=== PATIENT | male | born 1935 | race Caucasian/White ===

== ENCOUNTER 2016-08-23 05:41 | Inpatient (IN) | payer OTHER, MEDICARE ==
[~2016-08-23] VITALS: Ht 177.8 cm; Wt 92.5 kg
--- NOTE | ~2016-08-23 | H ---
[facility] [address] [place] [address] HISTORY AND PHYSICAL Name: JARRETT EASLEY V Room #: 150-8 DIS IN M.R.#: [id number] Admission: 08/23/16 Attend Phys: Luis Chand MD Discharge: 08/23/16 Date of : 31 Report #: [id number] THIS REPORT FOR: //name// For History and Physical, please see office documentation/handwritten note in the patient's medical record. By: 1525 Luis Chadn MD /jr
--- NOTE | ~2016-08-23 | O ---
[facility] [place] [address] OPERATIVE REPORT Name: JARRETT EASLEY V Room #: 150-8 [facility] IN M.R.#: [id number] Admission: 08/23/16 Attend Phys: Luis Chand MD Discharge: 08/23/16 Date of : 33 Report #: [id number] THIS REPORT FOR: //name// CC: Oren Chand DATE OF SERVICE: 08/23/2016 PREOPERATIVE DIAGNOSIS: Right tibia retained hardware. POSTOPERATIVE DIAGNOSIS: Right tibia retained hardware. PROCEDURE: Right tibial nail removal. SURGEON: Luis Chand MD SMALL ENGINE TECHNICIAN: Manuel Green, nurse practitioner. INDICATIONS FOR SMALL ENGINE TECHNICIAN: During the course of operation, extensive manipulation, retraction and limb positioning was required. This was afforded to me by my laboratory assistant. ANESTHETIC: General. INDICATIONS: See hospital history and physical. DESCRIPTION OF PROCEDURE: After adequate general anesthesia had been obtained, the patient's right lower extremity was prepped and draped in the usual meticulous sterile fashion. Incision was made overlying to the previously made incision proximally. SubQ divided sharply. The interlocking screw was identified and removed without difficulty. We then located the top of the nail. The removal device was screwed into the top of the nail and then the nail was backed down in retrograde fashion. It did require moderate amount of force to achieve this. We then took a C-arm to determine that we had not created an intraoperative fracture. The wound was irrigated copiously, meticulous hemostasis obtained. The retinaculum closed with #1 Vicryl, subQ closed with 2-0 Monocryl, skin closed with gertrudis. Sterile compressive dressing was applied. By: 1508 1657 Luis Chand MD /nt
[~2016-08-23 05:41] MED LIST: BENICAR HCT 401 EACH OR; BENICAR HCT 401 EACH PO; BYSTOLIC 5 MG5 M1 PO; COUMADIN 2.5MG2.5 M1 OR; COUMADIN 2.5MG2.5 M1 PO; COUMADIN 5 MG TA5 M1 OR; COUMADIN 5 MG TA5 M1 PO; FISH OIL 1,2001 EAC5 PO; FISHOIL; FLOMAX OR; FLOMAX PO; GLIPIZIDE ER10 MG PO; GLUCOPHAGE XR500 MG PO; HYDROCODON-ACE1 EAC5 PO; HYDROCODON-ACE1 EACH PO; HYTRIN 5 M5 MG/1 CAP PO; INDERAL40 MG PO; IRON18 M1 PO; LIPITOR20 MG PO; LIVALO2 MG PO; NEURONTIN 300300 M1 PO; NEURONTIN 300M300 M2 PO; NEURONTIN 400400 M1 PO; OMEGA-31000 MG PO; OMEPRAZOLE 20 M20 M1 PO; PRILOSEC 20 MG20 MG PO; PROSCAR 5MG TABL5 MG PO; TRAMADOL 50 MG50 MG PO; TRILIPIX135 MG PO; ULTRAM 50MG TAB50 MG OR
[2016-08-23 07:43] LABS: HEMATOCRIT 30.6 % (42.0-52.0); HEMOGLOBIN 10.6 gm/dL (14.0-18.0); MCH 31.4 pg (26.0-34.0); MCHC 34.7 g/dL (28.0-37.0); MCV 90.5 fL (80.0-100.0); RBC 3.38 mil/uL (4.50-6.00); RDW 14.3 % (10.5-14.5); WBC 4.1 thou/uL (4.0-11.0)
[2016-08-23 07:52] LABS: CALCIUM 8.8 mg/dL (8.5-10.1); CREATININE 1.5 mg/dL (0.7-1.3); POTASSIUM 3.9 mmol/L (3.5-5.1)
[2016-08-23 08:15] VITALS: BP 125/53
[2016-08-23 11:56] VITALS: BP 125/53
[2016-08-23] MEDS ORDERED: XARELTO15 MG PO (13:25)
== END 2016-08-23 13:15 | disposition home or self-care (01) | DRG 465 ==
LOC: TBA 05:41 → PRE 12:49 → TBA 13:15 → PRE 13:28
PROVIDERS: Orthopaedic Surgery
PROC: 0SPC0JZ Removal of Synthetic Substitute from Right Knee Joint, Open Approach (ICD-10-PCS; principal; 2016-08-23)
DX: T84.84XA Pain due to internal orthopedic prosthetic devices, implants and grafts, initial encounter (principal); M19.90 Unspecified osteoarthritis, unspecified site; Y69 Unspecified misadventure during surgical and medical care; E11.9 Type 2 diabetes mellitus without complications; Z98.42 Cataract extraction status, left eye; Z98.41 Cataract extraction status, right eye; Z80.3 Family history of malignant neoplasm of breast
CPT/HCPCS: 50010; 50101; 50386; 50417; 51320; 51412; 52001; 52282; 56525; 62110; 62900; 70005

== ENCOUNTER 2016-10-09 05:22 | Inpatient (IN) | payer OTHER, MEDICARE ==
[2016-09-26 11:08] LABS: HEMATOCRIT 26.7 % (42.0-52.0); HEMOGLOBIN 9.2 gm/dL (14.0-18.0); MCH 31.8 pg (26.0-34.0); MCHC 34.3 g/dL (28.0-37.0); MCV 92.8 fL (80.0-100.0); RBC 2.88 mil/uL (4.50-6.00); RDW 15.6 % (10.5-14.5); WBC 4.1 thou/uL (4.0-11.0)
[2016-09-26 11:13] LABS: URINE BILIRUBIN NEGATIVE (Negative); URINE BLOOD NEGATIVE (Negative); URINE COLOR YELLOW; URINE GLUCOSE-RANDOM* NEGATIVE (Negative); URINE KETONES NEGATIVE (Negative); URINE LEUKOCYTES-REFLEX NEGATIVE (Negative); URINE PROTEIN (DIPSTICK) NEGATIVE (Negative); URINE SPECIFIC GRAVITY 1.015 (1.003-1.035); URINE UROBILINOGEN 0.2 E.U./dl (0.2-1.0)
[2016-09-26 11:20] LABS: INR 1.8; PROTIME 18.2 Seconds (9.3-11.4)
[2016-09-26 11:22] LABS: ALBUMIN 3.4 g/dL (3.4-5.0); CALCIUM 8.4 mg/dL (8.5-10.1); CREATININE 1.4 mg/dL (0.7-1.3); POTASSIUM 4.1 mmol/L (3.5-5.1)
[2016-09-27 04:08] LABS: GLYCOHEMOGLOBIN (HGB A1C) 5.5 % (4.8-5.6)
[2016-10-09] VITALS (9 sets, daily range): BP systolic 89–120; BP diastolic 33–94
[~2016-10-09] VITALS: Ht 180.3 cm; Wt 93.9 kg
--- NOTE | ~2016-10-09 | EKG ---
[address] [address] ELECTROCARDIOGRAM REPORT Name: RONNADUARTEEktaJARRETT Sheila Room #: 535-P ADM IN M.R.#: [id number] Admission: 10/09/16 Attend Phys: Luis Chand MD Discharge: Date of : 33 Report #: [id number] THIS REPORT FOR: //name// [facility] Test Date: 2016-10-10 Test Time: 06:44:15 Pat Name: JARRETT EASLEY Department: Room: 535 P Gender: M Urinalysis Technician: devyn : 1935 Requested By: Oren Tenorio Order Number: [id number] MD: Rayray Ibarra Measurements Intervals [place] Rate: 69 P: [place]: QRS: -1 QRSD: 96 T: 39 QT: 422 QTc: 452 Interpretive Statements Atrial fibrillation Low voltage, extremity leads Baseline wander in lead(s) V2 Compared to ECG 09/26/2016 11:06:46 Ventricular premature complex(es) no longer present Electronically Signed On 10-10-2016 7:45:02 CDT by Rayray Ibarra [email or web address] <ELECTRONICALLY SIGNED> By: Rayray Ibarra MD, [facility] 10/10/16 0745 0644 0644 Rayray Ibarra MD, [facility] /EPI
--- NOTE | ~2016-10-09 | O ---
[facility] [place] [address] OPERATIVE REPORT Name: RONNAJARRETT FRANK Sheila Room #: 535-P ADM IN M.R.#: [id number] Admission: 10/09/16 Attend Phys: Luis Chand MD Discharge: Date of : 33 Report #: [id number] THIS REPORT FOR: //name// CC: Oren Tenorio MD [facility] Bradly Chand DATE OF SERVICE: 10/09/2016 PREOPERATIVE DIAGNOSES: Left knee degenerative joint disease, severe. POSTOPERATIVE DIAGNOSES: Left knee degenerative joint disease, severe. PROCEDURE: Left total knee arthroplasty. SURGEON: Luis Chand MD. GL ACCOUNTANT: BERNIE Gannon. INDICATIONS FOR GL ACCOUNTANT: During the course of operation, extensive manipulation, retraction and limb positioning was required. This was afforded to me by my mail handler assistant. ANESTHESIA: General. INDICATIONS: See hospital H and P. IMPLANTS UTILIZED: Used a DePuy PFC knee system. We used a cruciate retaining femoral component press fit size 5, size 5 tibial tray with 10 mm polyethylene insert and a 41 mm oval dome patella. DESCRIPTION OF PROCEDURE: After adequate general anesthesia had been obtained, the patient's left lower extremity was prepped and draped in the usual meticulous sterile fashion. Limb was exsanguinated with gravity, tourniquet inflated to 350 torr. Anterior midline incision was made, subQ divided sharply. Hemostasis obtained with electrocautery. Medial parapatellar incision was made. Infrapatellar fat pad excised. Medial release performed. Drill was used to drill the distal femur. This was enlarged, irrigated, suctioned, and the intramedullary guide placed the full length of the femur. Distal femoral cutting guide pinned the appropriate height, distal femoral cut was made. We used a measurement device, determined the size 5 as appropriate size for this patient. We marked the distal femur, impacted the cutting guide into place and the anterior, posterior and chamfer cuts were made. Rongeur was used to remove additional osteophytes. [address] [address] OPERATIVE REPORT Name: JARRETT EASLEY V Room #: 535-P [facility] IN M.R.#: [id number] Admission: 10/09/16 Attend Phys: Luis Chand MD Discharge: Date of : 33 Report #: [id number] At this time, ACL was transected, tibia translated anteriorly, menisci excised. Drill was used to drill central portion of the tibia. This hole was enlarged, irrigated, suctioned, and the intramedullary guide placed the full length of tibia. Proximal tibial cutting guide was placed at appropriate height. Proximal tibia cut was made and 5 tray gave us the best coverage on the tibia. Trial components in position, the patient had the best flexion and extension gap with a 10 spacer. We then measured the patella and a cutting guide was clamped into place, patellar cut was made. A 41 template gave us the best coverage. Pedicles were drilled, trial component put into position. The knee was then taken through several cycles of flexion, extension to achieve the optimal tibial tray rotation. Patella tracked normally. At this time, tibial tray rotation marked, distal femur drilled. Trial components were removed. Tibial keel cuts were made. The knee was irrigated with both pulse lavage and antibiotic irrigation. Cement was vacuum mixed and bone plugs were placed to proximal tibia and distal femur. When the cement reached the appropriate consistency, the knee was thoroughly dried, tibial tray was cemented in place, excess cement was removed, polyethylene was impacted in place. The femur was impacted in place and the knee was taken out to 30 degrees of flexion with uniform compression placed across components. Patellar button was then cemented into place and again, excess cement was removed. At this time, irrigation was placed in the wound and allowed to rest in the wound until the cement fully cured. When it had done so, the knee was irrigated, dried thoroughly. Drains were placed superolaterally deep and superficial. Retinacular layer was closed with combination of interrupted [id number]-sb-[id number] #1 Vicryl as well as running #1 Tevdek. SubQ was closed with 2-0 Monocryl, skin closed with gertrudis. Sterile compressive dressing was complied. Tourniquet was then deflated. By: [id number] [id number] Luis Chand MD /nt
--- NOTE | ~2016-10-09 | EKG ---
[place] [address] [address] ELECTROCARDIOGRAM REPORT Name: JARRETT EASLEY V Room #: PRE IN [facility] [id number] Admission: Attend Phys: Luis Chand MD Discharge: Date of : 33 Report #: [id number] THIS REPORT FOR: //name// [facility] Test Date: 2016-09-26 Test Time: 11:06:46 Pat Name: JARRETT EASLEY Department: Room: Gender: M Health Aid: EDE BARDALES : 1935 Requested By: Luis Chand Order Number: [id number] MD: Rayray Ibarra Measurements Intervals [place] Rate: 70 P: [place]: QRS: 83 QRSD: 99 T: 58 QT: 442 QTc: 477 Interpretive Statements Atrial fibrillation Occasional premature ventricular complex Low voltage, extremity leads Borderline prolonged QT interval Compared to ECG 07/31/2011 22:07:53 Ventricular ectopy is now present Electronically Signed On 09-27-2016 8:17:40 CDT by Rayray Ibarra [email or web address] <ELECTRONICALLY SIGNED> By: Rayray Ibarra MD, [facility] 09/27/16 0817 05 05 Rayray Ibarra MD, [facility] /EPI
--- NOTE | ~2016-10-09 | HC ---
[facility] [place] [address] CONSULTATION Name: KAUSHALJARRETT Sheila Room #: 535-P ADM IN M.R.#: [id number] Admission: 10/09/16 Attend Phys: Luis Chand MD Discharge: Date of : 33 Report #: [id number] THIS REPORT FOR: //name// CC: Bradly Chand HISTORY OF PRESENT ILLNESS: The patient is an 81-year-old male well known to myself, who I followed for permanent AFib, moderate valvular insufficiency and severe pulmonary hypertension. Ejection fraction has been in the 50% range with PA pressures in the 40s and 50s and actually the PA pressures have improved. He has lost 40 pounds over the last 6 months, this has significantly helped. He denies PND, orthopnea. He is postop from a left total knee. Hemodynamically, he is stable. Cardiovascular medications are scheduled to be reinstituted in the morning. Blood pressure has been lower limits, but still hemodynamically stable and asymptomatic. Pain is well controlled. No PND, orthopnea or peripheral edema. The left leg is wrapped. HOME MEDICATIONS: Benicar HCT 20/12.5, Bystolic 5, iron, finasteride 5, Livalo 2 mg, metformin 500 b.i.d., Neurontin, Xarelto 15 for the permanent AFib anticoagulation, omeprazole and terazosin 5. PAST MEDICAL HISTORY: Positive for the atrial fibrillation, mild aortic root dilatation 4.6 cm, stable with moderate AI, hypertension, hypercholesterolemia, hyperplastic polyps, hemicolectomy in 2003, chronic anticoagulation, sleep apnea; obesity, which is improved; old right tib-fib fracture, L4-L5 laminectomy, right hemicolectomy, spinal stenosis, inguinal hernia repair. FAMILY HISTORY: Father had pancreatic cancer at 69. Mother had a stroke in her 80s. SOCIAL HISTORY: He is . No alcohol or tobacco. He is retired. Three children alive and well. He quit tobacco 40 years ago. ALLERGIES: No known drug allergies. LABORATORY WORK: There has been no repeat labs yet, stable. He has chronic anemia, was 9.2 on September 26. PHYSICAL EXAMINATION: GENERAL: He is pleasant, alert, no significant discomfort. VITAL SIGNS: Blood pressure 114/94, pulse is 57. HEENT: Eyes xanthelasmas. Pharynx is clear. NECK: Shows preserved upstrokes without JVD or bruits. LUNGS: Clear anteriorly, slightly diminished in the right base. CARDIAC: Irregularly irregular, S1, S2. ABDOMEN: Soft. No HSM or abdominal bruit. EXTREMITIES: Reveal left total knee is wrapped postoperatively with drain in, [facility] [address] [place] [address] CONSULTATION Name: JARRETT EASLEY V Room #: 535-P ADM IN M.R.#: [id number] Admission: 10/09/16 Attend Phys: Luis Chand MD Discharge: Date of : 33 Report #: [id number] distal pulses diminished. NEUROLOGIC: Intact. MUSCULOSKELETAL: No gross joint deformity with exception of the left total knee and generalized arthritic changes. ASSESSMENT: 1. Status post left total knee. 2. Transient hypotension, resolved. 3. Permanent atrial fibrillation, rates well controlled. 4. Hypertension by history. 5. Pulmonary hypertension. 6. Diabetes. RECOMMENDATIONS AND PLAN: Would restart home medications of Bystolic, Benicar in the a.m., metformin also to be initiated and Xarelto anticoagulation which we would restart and will discuss with Dr. Chand about the dosage. Normal dose is 15 mg. We will repeat the a.m. lab and EKG. We will follow with you. Thank you for asking me to assist in the care of this patient. By: 1808 52 Oren Tenorio MD, FACC /nt
[~2016-10-09 05:22] MED LIST changes: +BENICAR HCT 401 EAC1 PO; +OLMESARTAN-HCT1 EAC2 PO; +XARELTO15 MG PO
[2016-10-09 07:37] LABS: INR 1.1; PROTIME 11.7 Seconds (9.3-11.4)
[2016-10-10 03:45] VITALS: BP 117/55
[2016-10-10 05:22] LABS: ABSOLUTE NEUTROPHILS 4.4 thou/uL (1.4-8.2); BASOPHILS 0.1 % (0.0-2.0); EOSINOPHILS 0.2 % (0.0-3.0); HEMATOCRIT 24.3 % (42.0-52.0); HEMOGLOBIN 8.3 gm/dL (14.0-18.0); LYMPHOCYTES 10.5 % (24.0-44.0); MCH 31.9 pg (26.0-34.0); MCHC 34.1 g/dL (28.0-37.0); MCV 93.5 fL (80.0-100.0); MONOCYTES 11.9 % (1.0-8.0); PLATELET COUNT 96 thou/uL (150-400); POLYS 77.3 % (36.0-66.0); RDW 15.4 % (10.5-14.5); WBC 5.7 thou/uL (4.0-11.0)
[2016-10-10 05:26] LABS: MANUAL DIFF NO
[2016-10-10 05:36] LABS: CALCIUM 8.4 mg/dL (8.5-10.1); CREATININE 1.5 mg/dL (0.7-1.3); MAGNESIUM 1.1 mg/dL (1.8-2.4); POTASSIUM 4.5 mmol/L (3.5-5.1)
[2016-10-10 16:11] VITALS: BP 106/53
[2016-10-10 19:46] VITALS: BP 100/49
[2016-10-11 01:19] LABS: HEMATOCRIT 26.5 % (42.0-52.0); HEMOGLOBIN 9.1 gm/dL (14.0-18.0); MCH 31.5 pg (26.0-34.0); MCHC 34.2 g/dL (28.0-37.0); MCV 92.3 fL (80.0-100.0); RBC 2.87 mil/uL (4.50-6.00); RDW 15.5 % (10.5-14.5); WBC 8.1 thou/uL (4.0-11.0)
[2016-10-11 01:27] LABS: CALCIUM 8.5 mg/dL (8.5-10.1); CREATININE 1.7 mg/dL (0.7-1.3)
[2016-10-11 03:41] VITALS: BP 109/55
[2016-10-11 08:17] VITALS: BP 98/50
[2016-10-11 15:53] VITALS: BP 97/44
[2016-10-11 19:12] VITALS: BP 99/55
[2016-10-12 03:39] LABS: HEMATOCRIT 22.5 % (42.0-52.0); HEMOGLOBIN 7.8 gm/dL (14.0-18.0); MCH 31.9 pg (26.0-34.0); MCHC 34.7 g/dL (28.0-37.0); MCV 91.8 fL (80.0-100.0); RBC 2.45 mil/uL (4.50-6.00); RDW 15.1 % (10.5-14.5)
[2016-10-12 03:45] LABS: CALCIUM 8.3 mg/dL (8.5-10.1); CREATININE 2.1 mg/dL (0.7-1.3); MAGNESIUM 1.4 mg/dL (1.8-2.4); POTASSIUM 4.6 mmol/L (3.5-5.1)
[2016-10-12 04:13] VITALS: BP 98/63
[2016-10-12] MEDS ORDERED: PERCOCET 10-321 EACH PO (07:04)
[2016-10-12 08:56] VITALS: BP 99/52
[2016-10-12] MEDS ORDERED: FLOMAX0.4 MG PO (09:33)
[2016-10-12 12:13] VITALS: BP 99/52
[2016-10-12 20:00] VITALS: BP 110/90
[2016-10-13 04:00] VITALS: BP 99/52
[2016-10-13 04:51] LABS: HEMATOCRIT 20.7 % (42.0-52.0); HEMOGLOBIN 7.1 gm/dL (14.0-18.0); MCH 31.9 pg (26.0-34.0); MCHC 34.6 g/dL (28.0-37.0); MCV 92.4 fL (80.0-100.0); RBC 2.24 mil/uL (4.50-6.00); RDW 15.1 % (10.5-14.5); WBC 3.1 thou/uL (4.0-11.0)
[2016-10-13 05:01] LABS: CALCIUM 8.4 mg/dL (8.5-10.1); POTASSIUM 4.8 mmol/L (3.5-5.1)
[2016-10-13 07:30] VITALS: BP 110/52
[2016-10-13 11:41] VITALS: BP 99/52
[2016-10-13] MEDS ORDERED: NATEGLINIDE60 MG PO (12:07)
[2016-10-13 12:48] VITALS: BP 99/52
[2016-10-13 13:21] VITALS: BP 99/52
== END 2016-10-13 13:22 | disposition home or self-care (01) | DRG 470 ==
LOC: TBA 05:22 → 5S 05:22 → PRE 07:23 → 5S 11:57 → PRE 12:50 → 5S 10-13 13:22
PROVIDERS: Hospitalist; Nurse Practitioner; Orthopaedic Surgery
PROC: 0SRD0J9 Replacement of Left Knee Joint with Synthetic Substitute, Cemented, Open Approach (ICD-10-PCS; principal; 2016-10-09)
DX: M17.12 Unilateral primary osteoarthritis, left knee (principal); I48.1 Persistent atrial fibrillation; N17.9 Acute kidney failure, unspecified; E78.00 Pure hypercholesterolemia, unspecified; M48.00 Spinal stenosis, site unspecified; I95.89 Other hypotension; I27.2 Other secondary pulmonary hypertension; E78.5 Hyperlipidemia, unspecified; G47.33 Obstructive sleep apnea (adult) (pediatric); E11.22 Type 2 diabetes mellitus with diabetic chronic kidney disease; I12.9 Hypertensive chronic kidney disease with stage 1 through stage 4 chronic kidney disease, or unspecified chronic kidney disease; N18.9 Chronic kidney disease, unspecified; E11.42 Type 2 diabetes mellitus with diabetic polyneuropathy; E83.42 Hypomagnesemia; D64.9 Anemia, unspecified; K59.00 Constipation, unspecified; D69.6 Thrombocytopenia, unspecified; R33.9 Retention of urine, unspecified; Z90.49 Acquired absence of other specified parts of digestive tract; Z79.01 Long term (current) use of anticoagulants; Z80.0 Family history of malignant neoplasm of digestive organs; Z79.899 Other long term (current) drug therapy; Z82.3 Family history of stroke
CPT/HCPCS: 10785; 50010; 50101; 50415; 50612; 50954; 51130; 51225; 51320; 51412; 51771; 52282; 53000; 53078; 53364; 56525; 56527; 62110; 62900; 70005

== ENCOUNTER 2017-01-29 00:21 | Inpatient (IN) | payer OTHER, MEDICARE ==
[2017-01-21 09:09] LABS: URINE BILIRUBIN NEGATIVE (Negative); URINE BLOOD NEGATIVE (Negative); URINE COLOR YELLOW; URINE GLUCOSE-RANDOM* NEGATIVE (Negative); URINE KETONES NEGATIVE (Negative); URINE LEUKOCYTES-REFLEX NEGATIVE (Negative); URINE PROTEIN (DIPSTICK) NEGATIVE (Negative); URINE SPECIFIC GRAVITY <= 1.005 (1.003-1.035); URINE UROBILINOGEN 0.2 E.U./dl (0.2-1.0)
[2017-01-21 09:11] LABS: HEMATOCRIT 29.7 % (42.0-52.0); HEMOGLOBIN 9.9 gm/dL (14.0-18.0); MCH 29.6 pg (26.0-34.0); MCHC 33.4 g/dL (28.0-37.0); MCV 88.6 fL (80.0-100.0); RBC 3.36 mil/uL (4.50-6.00); RDW 16.1 % (10.5-14.5); WBC 4.1 thou/uL (4.0-11.0)
[2017-01-21 09:22] LABS: INR 1.5; PROTIME 15.6 Seconds (9.3-11.4)
[2017-01-21 09:50] LABS: ALBUMIN 3.4 g/dL (3.4-5.0); CALCIUM 8.8 mg/dL (8.5-10.1); CREATININE 1.2 mg/dL (0.7-1.3); POTASSIUM 4.1 mmol/L (3.5-5.1)
[2017-01-21 20:07] LABS: GLYCOHEMOGLOBIN (HGB A1C) 5.9 % (4.8-5.6)
[2017-01-29] VITALS (7 sets, daily range): BP systolic 118–139; BP diastolic 62–71
[~2017-01-29] VITALS: Ht 180.3 cm; Wt 99.0 kg
--- NOTE | ~2017-01-29 | O ---
[facility] [place] [address] OPERATIVE REPORT Name: RONNAMONIKAJARRETT Sheila Room #: 404-P [facility] IN M.R.#: [id number] Admission: 01/29/17 Attend Phys: Luis Chand MD Discharge: 02/05/17 Date of : 33 Report #: [id number] THIS REPORT FOR: //name// CC: Oren Tenorio MD [facility] Bradly Chand DATE OF SERVICE: 01/29/2017 PREOPERATIVE DIAGNOSIS: Right knee degenerative joint disease, severe. POSTOPERATIVE DIAGNOSIS: Right knee degenerative joint disease, severe. PROCEDURE: Right knee total knee arthroplasty. SURGEON: Luis Chand MD PAINT FORMULATOR: BERNIE Gannon INDICATIONS FOR PAINT FORMULATOR: During the course of operation, extensive manipulation, retraction and limb positioning was required. This was afforded to me by my medical assistant float. ANESTHESTIC: General. INDICATIONS: See hospital H and P. IMPLANTS UTILIZED: We used a [employer] Nephew knee system. We used a size 8 cruciate retaining press fit femoral implant. We used a size 8 tibial tray with an 11 mm spacer and we used a 38 diameter patella. DESCRIPTION OF PROCEDURE: After adequate general anesthesia had been obtained, the patient's right lower extremity was prepped and draped in the usual meticulous sterile fashion. Limb was exsanguinated with gravity, tourniquet inflated to 350 torr. An anterior midline incision was made, subQ divided sharply. Medial parapatellar incision was made. Medial release performed. The drill was used to drill the distal femur. This hole was enlarged, irrigated and suctioned, and the intramedullary guide placed the full length of femur. The distal femoral cutting guide was pinned to appropriate height and distal femoral cut was made. We used a measuring device to determine size 8 is the appropriate size for this patient. We marked the distal femur and impacted the cutting guide into position and the anterior, posterior and chamfer cuts were made. Rongeur was used to remove additional osteophytes. At this time, the ACL was transected, tibia translated anteriorly and menisci [facility] [address] [place] [address] OPERATIVE REPORT Name: JARRETT EASLEY V Room #: 404-P DIS IN M.R.#: [id number] Admission: 01/29/17 Attend Phys: Luis Chand MD Discharge: 02/05/17 Date of : 33 Report #: [id number] were excised. We drilled the central portion of the tibia. This was enlarged, irrigated, suctioned, and the intramedullary guide placed the full length of the tibia. The proximal tibial cutting guide placed at appropriate height. Proximal tibia cut was made. A tray gave us the best coverage on the tibia. With an 11 spacer, we had the best flexion and extension gap. Patella tracked normally. We did measure the patella, placed the cutting guide into position, made the patellar cut. A 38 template gave us the best coverage. Pedicles were drilled, trial component put in position. It tracked normally. The knee was taken through several cycles of flexion and extension. The distal tibial tray rotation was marked, distal femur was punched. Tibial keel cuts were made. The knee was irrigated with both pulse lavage and antibiotic irrigation. Bone plugs were placed in proximal tibia and distal femur. The cement was vacuum mixed and when it reached the appropriate consistency, the knee was thoroughly dried. The tibial tray was cemented into place. Excess cement was removed. Polyethylene was impacted in place and the femur impacted in place and the knee was taken out to 30 degrees of flexion with uniform compression placed across components. Patellar button was then cemented into place and again excess cement was removed. Irrigation was placed in the wound and allowed to rest in the wound until the cement fully cured. When it had done so, the knee was irrigated, dried thoroughly, and inspected. Drains were placed superolaterally both deep and superficial. Retinacular layer closed with combination of interrupted sfxbnf-jv-rqoyh #1 Vicryl as well as running #1 Tevdek. SubQ closed with 2-0 Monocryl, skin closed with gertrudis. Sterile compressive dressing was applied. Tourniquet deflated. <ELECTRONICALLY SIGNED> By: Luis Chand MD 02/05/17 1539 1112 1221 Luis Chand MD /nt
[~2017-01-29 00:21] MED LIST changes: +FINASTERIDE5 MG PO; +FLOMAX0.4 MG PO; +HYZAAR 100-12.1 EACH PO; +METFORMIN HCL500 MG PO; +NATEGLINIDE60 MG PO; +PERCOCET 10-321 EACH PO
[2017-01-29 07:36] LABS: INR 1.1; PROTIME 11.4 Seconds (9.3-11.4)
[2017-01-30] VITALS: BP 107/53
[2017-01-30 04:00] VITALS: BP 115/50
[2017-01-30 06:03] LABS: ABSOLUTE NEUTROPHILS 6.7 thou/uL (1.4-8.2); BASOPHILS 0.1 % (0.0-2.0); HEMATOCRIT 25.9 % (42.0-52.0); HEMOGLOBIN 8.9 gm/dL (14.0-18.0); MCH 30.2 pg (26.0-34.0); MCHC 34.5 g/dL (28.0-37.0); MCV 87.8 fL (80.0-100.0); MONOCYTES 10.4 % (1.0-8.0); PLATELET COUNT 93 thou/uL (150-400); POLYS 79.5 % (36.0-66.0); RBC 2.95 mil/uL (4.50-6.00); RDW 16.5 % (10.5-14.5); WBC 8.4 thou/uL (4.0-11.0)
[2017-01-30 06:06] LABS: MANUAL DIFF NO
[2017-01-30 06:08] LABS: CALCIUM 8.5 mg/dL (8.5-10.1); CREATININE 1.5 mg/dL (0.7-1.3); POTASSIUM 4.3 mmol/L (3.5-5.1)
[2017-01-30 08:17] VITALS: BP 122/53
[2017-01-30 11:37] VITALS: BP 122/53
[2017-01-30 15:47] VITALS: BP 113/65
[2017-01-30 19:15] VITALS: BP 107/54
[2017-01-31 04:20] VITALS: BP 111/51
[2017-01-31 06:29] LABS: HEMATOCRIT 25.3 % (42.0-52.0); HEMOGLOBIN 8.7 gm/dL (14.0-18.0); MCH 30.2 pg (26.0-34.0); MCHC 34.3 g/dL (28.0-37.0); RBC 2.88 mil/uL (4.50-6.00); RDW 16.5 % (10.5-14.5); WBC 6.7 thou/uL (4.0-11.0)
[2017-01-31] MEDS ORDERED: PERCOCET 10-321 EACH PO (06:41)
[2017-01-31] MEDS ORDERED: XARELTO10 MG PO (06:41)
[2017-01-31] MEDS ORDERED: MS CONTIN15 MG PO (06:41)
[2017-01-31 08:25] VITALS: BP 100/66
[2017-01-31 10:35] LABS: CALCIUM 8.7 mg/dL (8.5-10.1); CREATININE 1.5 mg/dL (0.7-1.3); POTASSIUM 3.9 mmol/L (3.5-5.1)
[2017-01-31 15:40] VITALS: BP 98/44
[2017-01-31 20:14] VITALS: BP 110/47
[2017-02-01 04:38] VITALS: BP 108/42
[2017-02-01 05:09] LABS: HEMOGLOBIN 7.9 gm/dL (14.0-18.0); MCH 30.1 pg (26.0-34.0); MCHC 34.4 g/dL (28.0-37.0); MCV 87.6 fL (80.0-100.0); RBC 2.62 mil/uL (4.50-6.00); RDW 16.4 % (10.5-14.5); WBC 6.1 thou/uL (4.0-11.0)
[2017-02-01 08:00] VITALS: BP 116/53
[2017-02-01 16:00] VITALS: BP 106/57
[2017-02-01 19:53] VITALS: BP 107/72
[2017-02-02 04:46] VITALS: BP 118/42
[2017-02-02 07:35] VITALS: BP 125/58
[2017-02-02 08:00] VITALS: BP 111/53
[2017-02-02 18:09] VITALS: BP 111/53
[2017-02-02 20:00] VITALS: BP 111/52
[2017-02-03 04:00] VITALS: BP 111/50
[2017-02-03 06:09] LABS: HEMATOCRIT 22.6 % (42.0-52.0); HEMOGLOBIN 7.6 gm/dL (14.0-18.0); MCH 29.7 pg (26.0-34.0); MCHC 33.6 g/dL (28.0-37.0); MCV 88.2 fL (80.0-100.0); RBC 2.56 mil/uL (4.50-6.00); RDW 15.8 % (10.5-14.5); WBC 5.5 thou/uL (4.0-11.0)
[2017-02-03 06:22] LABS: ALBUMIN 2.2 g/dL (3.4-5.0); CALCIUM 9.1 mg/dL (8.5-10.1); CREATININE 1.6 mg/dL (0.7-1.3); POTASSIUM 4.8 mmol/L (3.5-5.1); TOTAL BILIRUBIN 1.1 mg/dL (<0.1-1.0)
[2017-02-03 08:00] VITALS: BP 120/56; BP 129/59
[2017-02-03 16:00] VITALS: BP 129/59
[2017-02-03 19:31] VITALS: BP 117/53
[2017-02-04 04:05] VITALS: BP 119/60
[2017-02-04 07:01] LABS: HEMATOCRIT 22.5 % (42.0-52.0); HEMOGLOBIN 7.7 gm/dL (14.0-18.0); MCH 29.8 pg (26.0-34.0); MCHC 33.9 g/dL (28.0-37.0); MCV 87.7 fL (80.0-100.0); RBC 2.57 mil/uL (4.50-6.00); WBC 5.3 thou/uL (4.0-11.0)
[2017-02-04 07:09] LABS: ALBUMIN 2.2 g/dL (3.4-5.0); CALCIUM 9.2 mg/dL (8.5-10.1); CREATININE 1.4 mg/dL (0.7-1.3); PHOSPHORUS 3.1 mg/dL (2.5-4.9); POTASSIUM 4.4 mmol/L (3.5-5.1)
[2017-02-04 08:00] VITALS: BP 113/56
[2017-02-04 16:00] VITALS: BP 127/59
[2017-02-04 20:12] VITALS: BP 107/39
[2017-02-05 05:09] VITALS: BP 115/54
[2017-02-05 08:00] VITALS: BP 103/82
[2017-02-05] MEDS ORDERED: HYDROCODONE PO (12:41)
== END 2017-02-05 14:20 | DRG 469 ==
LOC: PRE 00:21 → TBA 05:18 → 4N 05:18 → PRE 05:39 → 4N 12:58
PROVIDERS: Hospitalist; Nurse Practitioner; Orthopaedic Surgery
DX: M17.11 Unilateral primary osteoarthritis, right knee (principal); G93.40 Encephalopathy, unspecified; G47.33 Obstructive sleep apnea (adult) (pediatric); E83.42 Hypomagnesemia; K59.00 Constipation, unspecified; I12.9 Hypertensive chronic kidney disease with stage 1 through stage 4 chronic kidney disease, or unspecified chronic kidney disease; N18.9 Chronic kidney disease, unspecified; E11.22 Type 2 diabetes mellitus with diabetic chronic kidney disease; D69.6 Thrombocytopenia, unspecified; I48.91 Unspecified atrial fibrillation; E78.5 Hyperlipidemia, unspecified; E11.42 Type 2 diabetes mellitus with diabetic polyneuropathy; Z98.42 Cataract extraction status, left eye; Z87.828 Personal history of other (healed) physical injury and trauma; Z98.41 Cataract extraction status, right eye; Z90.49 Acquired absence of other specified parts of digestive tract; Z87.442 Personal history of urinary calculi; Z87.891 Personal history of nicotine dependence; Z23 Encounter for immunization; Z79.4 Long term (current) use of insulin; Z79.899 Other long term (current) drug therapy
CPT/HCPCS: 10790; 50010; 50101; 50415; 50954; 51130; 51225; 51320; 51412; 51771; 53078; 53364; 56525; 56527; 62110; 62900; 64042; 64043; 70005

== ENCOUNTER → 2017-02-13 | Outpatient (CLI) | payer OTHER, MEDICARE ==
[~2017-02-13] MED LIST changes: +HYDROCODONE PO; +MS CONTIN15 MG PO; +XARELTO10 MG PO
[2017-02-13 10:21] VITALS: BP 85/46; BP 91/42
== END ==
LOC: OPONC 04:30
DX: D64.9 Anemia, unspecified (principal)
CPT/HCPCS: 91030

== ENCOUNTER → 2017-06-05 | Outpatient (CLI) | payer OTHER, MEDICARE ==
[~2017-06-05] MED LIST changes: +IRON325 PO; +LASIX 20 MG TAB20 MG PO
[2017-06-05 11:14] VITALS: BP 100/49
[2017-06-05 13:49] VITALS: BP 100/49; BP 106/38; BP 96/47
== END ==
LOC: OPONC 08:27
DX: D50.9 Iron deficiency anemia, unspecified (principal)
CPT/HCPCS: 91030

== ENCOUNTER 2017-06-10 19:18 | Inpatient (IN) | payer OTHER, MEDICARE ==
[~2017-06-10] VITALS: Ht 177.8 cm; Wt 89.8 kg
[2017-06-10] VITALS: BP 112/52
--- NOTE | ~2017-06-10 | 2DMMODE ---
[facility] [address] [place] [address] 2 D/M-MODE ECHOCARDIOGRAM Name: JARRETT EASLEY V Room #: 206-P [facility] IN M.R.#: [id number] Admission: 06/10/17 Attend Phys: Oren Tenorio, Discharge: Date of : 31 Date of Service: 06/11/17 1325 Report #: [id number] THIS REPORT FOR: //name// APPROVED REPORT Study performed: 06/11/2017 12:05:13 EXAM: Comprehensive 2D, Doppler, and color-flow Echocardiogram Patient Location: Echo lab Room #: [facility] Status: routine BSA: 2.11 HR: 70 bpm BP: 105/50 mmHg Rhythm: Atrial Fibrillation Other Information Study Quality: Good Indications Permanent atrial Fibrillation. Hx: HTN HLP DM 2D Dimensions RVDd: 42.68 mm LVEF(%): 57.15 (>50%) IVSd: 11.00 (7-11mm) LVOT Diam: 22.12 (18-24mm) LVDd: 54.06 mm PWd: 10.39 (7-11mm) Ascending Ao: 45.91 (22-36mm) LVDs: 37.68 (25-40mm) Aortic Root: 41.88 mm Serra's LVEF: 57.15 % Volumes Left Atrial Volume (Systole) Single Plane 4CH: 321.17 mL Single Plane 2CH: 287.02 mL LA ESV Index: 157.00 mL/m2 Aortic Valve AoV Peak Bear.: 1.67 m/s AO Peak Gr.: 11.28 mmHg LVOT Max P.49 mmHg LVOT Max V: 1.17 m/s BRENDA Vmax: 2.68 cm2 Mitral Valve MV Decel. Time: 192.49 ms MV E Max Bear.: 1.37 m/s [facility] [place] [address] 2 D/M-MODE ECHOCARDIOGRAM Name: JARRETT EASLEY V Room #: 206-P [facility] IN M.R.#: [id number] Admission: 06/10/17 Attend Phys: Oren Tenorio, Discharge: Date of : 33 Date of Service: 06/11/17 1325 Report #: [id number] Pulmonary Valve PV Peak Bear.: 1.43 m/s PV Peak Gr.: 8.23 mmHg Tricuspid Valve TR Peak Bear.: 2.84 m/s RAP Estimate: 5.00 mmHg TR Peak Gr.: 32.30 mmHg PA Pressure: 37.00 mmHg Left Ventricle The left ventricle is normal size. There is normal LV segmental wall motion. Left ventricular systolic function is normal. LVEF is 55%. This study is not technically sufficient to allow evaluation of the LV diastolic function due to atrial fibrillation. Right Ventricle Right ventricle is mildly dilated. The right ventricular systolic function is normal. Atria Left atrium is massively dilated. Right atrium is severely dilated. Aortic Valve The Aortic valve is mildly sclerotic. Mild to moderate aortic regurgitation. There is no aortic valvular stenosis. Mitral Valve Mitral valve leaflets are mildly thickened. Mild mitral annular calcification. Moderate mitral regurgitation. Tricuspid Valve The tricuspid valve is normal in structure. Moderate tricuspid regurgitation. Estimated PAP is 35-40mmHg. Pulmonic Valve The pulmonary valve is normal in structure. Mild pulmonic regurgitation. Great Vessels Aortic root is dilated at 4.2cm. Aortic arch is dilated at 4.6cm. IVC is normal in size and collapses >50% with inspiration. Pericardium Small anterior/posterior fluid noted. [facility] [address] [place] [address] 2 D/M-MODE ECHOCARDIOGRAM Name: JARRETT EASLEY V Room #: 206[facility] IN .R.#: [id number] Admission: 06/10/17 Attend Phys: Oren Tenorio, Discharge: Date of : 33 Date of Service: 06/11/17 1325 Report #: [id number] <Conclusion> The left ventricle is normal size. Left ventricular systolic function is normal. LVEF is 55%. This study is not technically sufficient to allow evaluation of the LV diastolic function due to atrial fibrillation. Right ventricle is mildly dilated. The right ventricular systolic function is normal. Left atrium is massively dilated. Right atrium is severely dilated. The Aortic valve is mildly sclerotic. There is no aortic valvular stenosis. Moderate mitral regurgitation. Mitral valve leaflets are mildly thickened. Mild mitral annular calcification. Moderate tricuspid regurgitation. Estimated PAP is 35-40mmHg. Aortic root is dilated at 4.2cm. Small anterior/posterior fluid noted. <ELECTRONICALLY SIGNED> By: Oren Tenorio MD, FACC 06/11/17 1325 1325 Oren Tenorio MD, FACC /INF
--- NOTE | ~2017-06-10 | D ---
[facility] [place] [address] DISCHARGE SUMMARY Name: JARRETT EASLEY V Room #: 206-P [facility] IN M.R.#: [id number] Admission: 06/10/17 Attend Phys: Oren Tenorio MD, Discharge: 06/12/17 Date of : 33 Report #: [id number] THIS REPORT FOR: //name// CC: Oren Robin DATE OF SERVICE: 06/13/2017 HOSPITAL COURSE: The patient is an 82-year-old male who was admitted with progressive GI bleeding issues. Followed closely by myself and Dr. Robin. His serial hemoglobins revealed hemoglobin down to 6-7 range. He has significant underlying pulmonary hypertension and valvular insufficiency. Ejection fraction near normal, mild aortic root dilatation. He was seen and despite prior colonoscopy and upper EGD, continuing to bleed. Subsequently, he had findings of a small bowel bleed and was requiring recurrent transfusion. He was transferred to interrogate for evaluation of the small bowel bleeding cauterization. The M2 video capsule reveal distal small bowel about 3 hours distal to the duodenum, then received a Meckel's scan and he was transferred to [facility] for research for the double balloon enteroscopy to identify and cauterize and treat the source of bleeding. He remained hemodynamically stable and was transferred for that double balloon enteroscopy. DISCHARGE DIAGNOSES: 1. Recurrent gastrointestinal bleed. 2. Acute blood loss anemia. 3. Permanent atrial fibrillation, usually on anticoagulation. This has been held. 4. Hypertension. 5. Hypercholesterolemia. 6. Pulmonary hypertension with moderate MR and TR. 7. Diabetes. 8. Chronic venous insufficiency. 9. Dilated aortic root. <ELECTRONICALLY SIGNED> By: Oren Tenorio MD, FACC 07/22/17 1711 0917 0935 Oren Tenorio MD, FACC /nt
--- NOTE | ~2017-06-10 | EKG ---
[place] [address] [address] [facility] [place] [address] ELECTROCARDIOGRAM REPORT Name: JARRETT EASLEY V Room #: 206-P ADM IN M.R.#: [id number] Admission: 06/10/17 Attend Phys: Oren Tenorio MD, Discharge: Date of : 33 Report #: [id number] THIS REPORT FOR: //name// [facility] Test Date: 2017-06-11 Test Time: 08:54:51 Pat Name: JARRETT EASLEY Department: Room: 206 P Gender: M Web Production Artist: ZANDER : 1935 Requested By: Tiffanie Menezes Order Number: [id number] MD: Rayray Ibarra Measurements Intervals [place] Rate: 72 P: [place]: QRS: -8 QRSD: 95 T: 28 QT: 434 QTc: 476 Interpretive Statements Atrial fibrillation Low voltage, extremity leads Probable anteroseptal infarct, old Compared to ECG 10/10/2016 06:44:15 No significant change was found Electronically Signed On 06-12-2017 8:56:34 WINDOW TRIMMER APPRENTICE by Rayray Ibarra [email or web address] <ELECTRONICALLY SIGNED> By: Rayray Ibarra MD, [facility] 06/12/17 0856 0854 0854 Rayray Ibarra MD, [facility] /EPI
[2017-06-10 20:30] VITALS: BP 111/75; BP 112/52
[2017-06-10 20:55] VITALS: BP 112/52
[2017-06-10 23:21] VITALS: BP 105/50
[2017-06-10 23:25] VITALS: BP 100/48; BP 111/53
[2017-06-11 01:21] VITALS: BP 104/50; BP 108/51
[2017-06-11 04:48] VITALS: BP 109/52
[2017-06-11 05:08] LABS: ABSOLUTE NEUTROPHILS 3.1 thou/uL (1.4-8.2); BASOPHILS 0.9 % (0.0-2.0); EOSINOPHILS 3.4 % (0.0-3.0); HEMATOCRIT 20.7 % (42.0-52.0); HEMOGLOBIN 7.2 gm/dL (14.0-18.0); LYMPHOCYTES 24.6 % (24.0-44.0); MCH 30.6 pg (26.0-34.0); MCHC 34.7 g/dL (28.0-37.0); MONOCYTES 9.8 % (1.0-8.0); PLATELET COUNT 148 thou/uL (150-400); POLYS 61.3 % (36.0-66.0); RBC 2.35 mil/uL (4.50-6.00); RDW 15.4 % (10.5-14.5)
[2017-06-11 05:19] LABS: CALCIUM 8.4 mg/dL (8.5-10.1); CREATININE 1.9 mg/dL (0.7-1.3)
[2017-06-11 07:55] VITALS: BP 97/46
[2017-06-11 11:10] VITALS: BP 105/50
[2017-06-11 15:40] VITALS: BP 110/73
[2017-06-11 20:10] VITALS: BP 113/45
[2017-06-12 05:04] VITALS: BP 108/54
[2017-06-12 05:47] LABS: HEMOGLOBIN 6.9 gm/dL (14.0-18.0); MCH 30.9 pg (26.0-34.0); RBC 2.23 mil/uL (4.50-6.00); RDW 15.4 % (10.5-14.5); WBC 4.6 thou/uL (4.0-11.0)
[2017-06-12 05:48] LABS: MCHC 35.6 g/dL (28.0-37.0); MCV 86.9 fL (80.0-100.0)
[2017-06-12 05:56] LABS: HEMATOCRIT 19.4 % (42.0-52.0)
[2017-06-12 07:58] VITALS: BP 119/50
[2017-06-12 08:31] VITALS: BP 101/54; BP 112/62
[2017-06-12 12:29] VITALS: BP 101/54
[2017-06-12 15:36] VITALS: BP 113/58
[2017-06-12 17:03] LABS: HEMATOCRIT 23.3 % (42.0-52.0)
[2017-06-12 20:15] VITALS: BP 115/54
== END 2017-06-12 21:35 | disposition short-term general hospital (02) | DRG 377 ==
LOC: 2N 19:18
PROVIDERS: Internal Medicine Cardiovascular Disease; Internal Medicine Gastroenterology; Nurse Practitioner Adult Health
PROC: 30233N1 Transfusion of Nonautologous Red Blood Cells into Peripheral Vein, Percutaneous Approach (ICD-10-PCS; principal; 2017-06-10)
PROC: 0DJ07ZZ Inspection of Upper Intestinal Tract, Via Natural or Artificial Opening (ICD-10-PCS; 2017-06-12)
DX: K92.1 Melena (principal); E43 Unspecified severe protein-calorie malnutrition; D62 Acute posthemorrhagic anemia; D68.59 Other primary thrombophilia; I48.2 Chronic atrial fibrillation; I10 Essential (primary) hypertension; E78.00 Pure hypercholesterolemia, unspecified; I87.2 Venous insufficiency (chronic) (peripheral); E78.5 Hyperlipidemia, unspecified; G47.30 Sleep apnea, unspecified; E11.42 Type 2 diabetes mellitus with diabetic polyneuropathy; I08.3 Combined rheumatic disorders of mitral, aortic and tricuspid valves; Z96.652 Presence of left artificial knee joint; I95.9 Hypotension, unspecified; K57.90 Diverticulosis of intestine, part unspecified, without perforation or abscess without bleeding; Z79.899 Other long term (current) drug therapy; Z98.42 Cataract extraction status, left eye; Z98.41 Cataract extraction status, right eye; Z90.89 Acquired absence of other organs; Z87.891 Personal history of nicotine dependence; Z87.11 Personal history of peptic ulcer disease; Z79.01 Long term (current) use of anticoagulants; Z80.0 Family history of malignant neoplasm of digestive organs
CPT/HCPCS: 10081

== ENCOUNTER → 2017-08-02 | Outpatient (CLI) | payer OTHER, MEDICARE | LOC: RAD 06:14 | DX: M47.27 Other spondylosis with radiculopathy, lumbosacral region (principal); M51.36 Other intervertebral disc degeneration, lumbar region; M48.07 Spinal stenosis, lumbosacral region; I70.0 Atherosclerosis of aorta; I48.91 Unspecified atrial fibrillation; N28.1 Cyst of kidney, acquired ==

== ENCOUNTER → 2018-06-18 | Outpatient (CLI) | payer OTHER, MEDICARE | LOC: RAD 16:30 | DX: M77.32 Calcaneal spur, left foot (principal); M85.872 Other specified disorders of bone density and structure, left ankle and foot; M25.872 Other specified joint disorders, left ankle and foot ==

== ENCOUNTER → 2018-06-19 | Outpatient (CLI) | payer OTHER, MEDICARE ==
--- NOTE | 2018-06-23 19:49 | SLE ---
[facility] [place] [address] POLYSOMNOGRAPHY STUDY Name: JARRETT EASLEY V Room #: REG [facility]#: [id number] Admission: 06/19/18 ������������������ Attend Phys: Ramone Martinez MD Discharge: ������������������ Date of : 31 Report #: [id number] THIS REPORT FOR: //name// CC: Ramone Robin MD DATE OF SERVICE: 06/19/2018 ATTENDING PHYSICIAN: Dr. Bradly Robin. The patient is 83 years old who weighs 205 pounds with a BMI of 31.2. The patient underwent diagnostic sleep study at [facility]. During the night study, the patient spent 404 minutes in bed and slept for 254 minutes with a low sleep efficiency of 62.8%. The patient's sleep latency was 18.1 minutes, with a REM latency of 212 minutes. Overall, sleep architecture showed increased stage 1 and stage 2 sleep, absent N3 sleep and significantly reduced REM sleep, which is only 2.2% of the total sleep time. During the night of the study, the patient had 64 obstructive apneas, no mixed or central apneas and 33 hypopneas. The patient's apnea hypopnea index was 23 per hour, with a REM index of 11 per hour and a supine index of 26 per hour. The EKG monitoring revealed an average heart rate of 73 beats per minute with a maximum 85 beats per minute. Occasional PACs and sinus arrhythmias seen. PLMS were seen at an index of 51 per hour and 10 per hour caused EEG arousals. Nocturnal oximetry study revealed an average oxygen saturation of 93% to lows of 80%. 14 minutes were spent in oxygen saturation of less than 89%. The patient did meet split night criteria for CPAP initiation, but it was late in the night of the study. As a result, a CPAP could not be initiated. IMPRESSION: 1. Moderate sleep apnea-hypopnea syndrome at an AHI of 23 per hour. Significantly reduced REM sleep can underestimate the severity of sleep apnea. 2. Nocturnal hypoxia secondary to obstructive sleep apnea. 3. Severe periodic limb movements. 4. Reduced sleep efficiency of 63%, resulting from sleep maintenance insomnia. RECOMMENDATIONS: 1. The patient would benefit from treatment of sleep apnea with either an oral appliance or a trial of CPAP titration. [address] [address] POLYSOMNOGRAPHY STUDY Name: JARRETT EASLEY V Room #: REG [facility]#: [id number] Admission: 06/19/18 ������������������ Attend Phys: Ramone Martinez MD Discharge: ������������������ Date of : 31 Report #: [id number] 2. Once the patient is treated with above, then he should be followed up in 4-6 weeks to assess compliance and to document clinical improvement. 3. Weight loss is advised. 4. Avoid [employer] depressants. 5. Cautioned regarding driving until symptoms of sleep apnea resolve with the above recommendations. 6. The patient's insomnia should be further evaluated and treated according to the etiology. 7. The patient's PLMS can be treated with dopaminergic agonist agents if the patient is clinically symptomatic. The patient should also be further evaluated for symptoms of restless legs during the day. ��������������������������������������������� <ELECTRONICALLY SIGNED> ���������������������������������������� By: Ramone Martinez MD ��������������������������������������������� 06/23/18 1949 [id number] Ramone Martinez MD /nt
== END ==
LOC: SLEEPLAB 14:53
DX: G47.33 Obstructive sleep apnea (adult) (pediatric) (principal); G47.34 Idiopathic sleep related nonobstructive alveolar hypoventilation; G47.61 Periodic limb movement disorder

== ENCOUNTER → 2019-05-26 | Outpatient (CLI) | payer OTHER, MEDICARE | LOC: SJCVCIMAG 14:57 | DX: I08.3 Combined rheumatic disorders of mitral, aortic and tricuspid valves (principal); I48.0 Paroxysmal atrial fibrillation; I11.0 Hypertensive heart disease with heart failure; I50.9 Heart failure, unspecified; E11.9 Type 2 diabetes mellitus without complications; E78.00 Pure hypercholesterolemia, unspecified; I87.2 Venous insufficiency (chronic) (peripheral); Z79.01 Long term (current) use of anticoagulants; Z86.79 Personal history of other diseases of the circulatory system; Z79.899 Other long term (current) drug therapy; Z87.891 Personal history of nicotine dependence ==

== ENCOUNTER → 2019-11-16 | Outpatient (CLI) | payer OTHER, MEDICARE | LOC: SJCVC 11:26 | PROVIDERS: ATTEND Internal Medicine Cardiovascular Disease | DX: I48.21 Permanent atrial fibrillation (principal); R94.31 Abnormal electrocardiogram [ECG] [EKG]; I08.1 Rheumatic disorders of both mitral and tricuspid valves; E78.00 Pure hypercholesterolemia, unspecified; E11.9 Type 2 diabetes mellitus without complications; I11.0 Hypertensive heart disease with heart failure; I50.9 Heart failure, unspecified; I87.2 Venous insufficiency (chronic) (peripheral); G47.33 Obstructive sleep apnea (adult) (pediatric); Z79.01 Long term (current) use of anticoagulants; Z99.89 Dependence on other enabling machines and devices; Z79.899 Other long term (current) drug therapy; Z82.49 Family history of ischemic heart disease and other diseases of the circulatory system; Z87.891 Personal history of nicotine dependence ==

== ENCOUNTER → 2020-01-28 | Outpatient (CLI) | payer OTHER, MEDICARE ==
[~2020-01-28] VITALS: Ht 177.8 cm; Wt 97.5 kg
[~2020-01-28] MED LIST changes: +LORCET 5-325 M1 EACH PO
--- NOTE | ~2020-01-28 | HPC ---
[facility] [place] [address] PAIN MANAGEMENT CONSULTATION Name: JARRETT EASLEY V Room #: REG MARIA T Samira.#: [id number] Admission: 01/28/20 Attend Phys: Prem Cueto MD Discharge: Date of : 31 Report #: [id number] CC: Bradly Cueto DATE OF SERVICE: 01/28/2020 CHIEF COMPLAINT: Left shoulder pain. 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 He is a fernando fellow loves jose carlos patel still with his son and has remained active. His 8 years ago. He comes today complaining of pain about 6-8/10 and it is a throbbing, intermittent pain in the left shoulder. He does have some occasional radiation, but in questioning, it does not sound radicular. It is made worse with movements, particularly with abduction of the shoulder. When he rests, it is better. He has been using some topicals including Biofreeze and Voltaren gel with some modest relief. He does not take an oral anti-inflammatory drug. MEDICATIONS: Glucosamine, magnesium, gabapentin, omeprazole, terazosin, metformin, Bystolic, finasteride, Livalo. He was on Xarelto, but was discontinued. His hemoglobin was low at 7 and since stopping his Xarelto, it is now up to 9. I do not believe there has been an identified area of bleeding, although he has had bleeding blood vessels identified by endoscopy in 2018. ALLERGIES: None. PAST MEDICAL HISTORY: Diabetes, bleeding tendencies, arthritis, gastric ulcers. Osteoarthritis, bilateral knee replacement. He had his right arm rotator cuff surgery in 1995. SOCIAL HISTORY: He is a , does not smoke, does not drink. He is retired. Impact pain score is 56 suggesting significant impact, although I am not sure from talking to him that is an adequate reflection of this pain. He seems to downplay during his interview. Opioid risk tool 0. REVIEW OF SYSTEMS: Positive for weakness in the left arm. Frequent urination, nocturia, fatigue. PHYSICAL EXAMINATION: GENERAL: He is a very pleasant, outgoing 84-year-old. VITAL SIGNS: Blood pressure is 122/69, heart rate 89, respirations 20. Moves independently from sitting to standing position, ambulates without difficulty. CHEST: Clear. CARDIAC: Rhythm today is regular, although he has a history of atrial fibrillation. MUSCULOSKELETAL: Reveals good range of motion of the left shoulder. His only pain comes with abduction of the shoulder against resistance, which would suggest either a supraspinatus or biceps tendon or both tendinitis. There is no swelling, no redness or inflammation. IMPRESSION: Tendinitis of the right shoulder. There may be some mild osteoarthritis, but his joint range of motion is otherwise pretty good. I think this is a soft tissue inflammation and may respond nicely to an injection. Recommend a fluoroscopically guided shoulder injection. PROCEDURE: After informed consent, he was taken to the fluoroscopic suite, placed supine. Skin was prepped with ChloraPrep. A 25-gauge needle was gently advanced into the shoulder joint. After a negative aspiration, I gently injected 4 mL of 0.5% bupivacaine mixed with 40 mg triamcinolone. He tolerated the procedure well. There were no complications. He was observed for a short time and then discharged. Follow up as needed. By: [id number] Prem Cueto MD /nt
[2020-01-28 14:26] VITALS: BP 122/69
--- NOTE | 2020-01-28 14:48 | NUR ---
Pain Clinic Assessment: 1. History of Osteoarthritis: left hand History of Rheumatoid Arthritis: Not Applicable 2. Height: 5 ft. 10 in. 177.8 cm. Weight: 215.0 lb. oz. 97.524 kg. Patient's BMI: 30.8 3. Vital Signs: BP: 122/69 Pulse: 89 Resp: 20 Temp: 02 Sat: 98 ECG Mon: 4. Pain Intensity: 6 5. Fall Risk: Dizziness: N Needs help standing or walking: Y Fallen in the last 3 months: N Fall risk comments: 6. Patient on Blood Thinner: xarelto 7. History of Hypertension: N 8. Opioid Therapy greater than 6 weeks: N Opiate Contract Signed: 9. Risk Assessment Tool Provided: 0-low 10. Functional Assessment Tool: 56/ 11. Recreational Drug Use: Never Drug Type: Tobacco Use: Former Smoker Tobacco Type: Amount or Packs/day: How Many Years: Alcohol Use: No Frequency: Quant:
== END | disposition home or self-care (01) ==
LOC: PAIN 07:02
PROVIDERS: ATTEND Anesthesiology Pain Medicine
DX: M25.512 Pain in left shoulder (principal); M77.8 Other enthesopathies, not elsewhere classified; M19.012 Primary osteoarthritis, left shoulder; E11.9 Type 2 diabetes mellitus without complications; M19.90 Unspecified osteoarthritis, unspecified site; I51.9 Heart disease, unspecified; Z96.653 Presence of artificial knee joint, bilateral; Z79.84 Long term (current) use of oral hypoglycemic drugs; Z79.899 Other long term (current) drug therapy; Z98.890 Other specified postprocedural states

== ENCOUNTER → 2020-02-09 | Outpatient (CLI) | payer OTHER, MEDICARE | LOC: SJCVC 15:51 | PROVIDERS: ATTEND Internal Medicine Cardiovascular Disease | DX: R93.41 Abnormal radiologic findings on diagnostic imaging of renal pelvis, ureter, or bladder (principal); I48.21 Permanent atrial fibrillation; I10 Essential (primary) hypertension; I07.1 Rheumatic tricuspid insufficiency; I34.0 Nonrheumatic mitral (valve) insufficiency; E78.00 Pure hypercholesterolemia, unspecified; E11.9 Type 2 diabetes mellitus without complications; I87.2 Venous insufficiency (chronic) (peripheral); G47.33 Obstructive sleep apnea (adult) (pediatric); Z79.01 Long term (current) use of anticoagulants; Z79.899 Other long term (current) drug therapy; Z86.79 Personal history of other diseases of the circulatory system ==

== ENCOUNTER → 2020-03-04 | Outpatient (CLI) | payer OTHER, MEDICARE | LOC: SJCVC 10:48 | PROVIDERS: ATTEND Internal Medicine Cardiovascular Disease | DX: I48.21 Permanent atrial fibrillation (principal); R94.31 Abnormal electrocardiogram [ECG] [EKG]; E78.00 Pure hypercholesterolemia, unspecified; I87.2 Venous insufficiency (chronic) (peripheral); E11.9 Type 2 diabetes mellitus without complications; I34.0 Nonrheumatic mitral (valve) insufficiency; Z79.01 Long term (current) use of anticoagulants; D64.9 Anemia, unspecified; D68.59 Other primary thrombophilia; I11.0 Hypertensive heart disease with heart failure; Z79.899 Other long term (current) drug therapy; Z87.891 Personal history of nicotine dependence; Z86.79 Personal history of other diseases of the circulatory system ==

== ENCOUNTER → 2020-05-12 | Outpatient (CLI) | payer OTHER, MEDICARE | LOC: SJCVCIMAG 09:22 | PROVIDERS: ATTEND Internal Medicine Cardiovascular Disease | DX: I08.8 Other rheumatic multiple valve diseases (principal); R94.31 Abnormal electrocardiogram [ECG] [EKG]; I48.21 Permanent atrial fibrillation; I11.9 Hypertensive heart disease without heart failure; I87.2 Venous insufficiency (chronic) (peripheral); E11.9 Type 2 diabetes mellitus without complications; D68.59 Other primary thrombophilia; Z79.84 Long term (current) use of oral hypoglycemic drugs; Z79.899 Other long term (current) drug therapy; Z87.891 Personal history of nicotine dependence ==

== ENCOUNTER → 2020-10-12 | Outpatient (CLI) | payer OTHER, MEDICARE | LOC: SJCVC 11:44 | PROVIDERS: ATTEND Internal Medicine Cardiovascular Disease | DX: R94.31 Abnormal electrocardiogram [ECG] [EKG] (principal); I48.21 Permanent atrial fibrillation; E78.00 Pure hypercholesterolemia, unspecified; I08.1 Rheumatic disorders of both mitral and tricuspid valves; I87.2 Venous insufficiency (chronic) (peripheral); D68.59 Other primary thrombophilia; E11.22 Type 2 diabetes mellitus with diabetic chronic kidney disease; I12.9 Hypertensive chronic kidney disease with stage 1 through stage 4 chronic kidney disease, or unspecified chronic kidney disease; N18.9 Chronic kidney disease, unspecified; N40.0 Benign prostatic hyperplasia without lower urinary tract symptoms; G47.33 Obstructive sleep apnea (adult) (pediatric); M19.90 Unspecified osteoarthritis, unspecified site; Z90.49 Acquired absence of other specified parts of digestive tract; Z79.01 Long term (current) use of anticoagulants; Z79.84 Long term (current) use of oral hypoglycemic drugs; Z79.899 Other long term (current) drug therapy; Z87.891 Personal history of nicotine dependence; Z82.49 Family history of ischemic heart disease and other diseases of the circulatory system ==

== ENCOUNTER 2021-01-10 15:34 | Emergency (ER) | payer OTHER, MEDICARE ==
[~2021-01-10] VITALS: Ht 177.8 cm; Wt 97.5 kg
[2021-01-10] MEDS ORDERED: AUGMENTIN 875-1 EACH PO (16:14)
== END 2021-01-10 16:15 | disposition home or self-care (01) ==
LOC: ER 15:34
DX: S90.112A Contusion of left great toe without damage to nail, initial encounter (principal); E11.9 Type 2 diabetes mellitus without complications; I48.91 Unspecified atrial fibrillation; Z79.891 Long term (current) use of opiate analgesic; Z79.84 Long term (current) use of oral hypoglycemic drugs; Z79.899 Other long term (current) drug therapy; Z87.891 Personal history of nicotine dependence; W18.49XA Other slipping, tripping and stumbling without falling, initial encounter; Y93.89 Activity, other specified; Y92.89 Other specified places as the place of occurrence of the external cause; Y99.8 Other external cause status

== ENCOUNTER → 2021-04-04 | Outpatient (CLI) | payer OTHER, MEDICARE ==
[~2021-04-04] MED LIST changes: +AUGMENTIN 875-1 EACH PO
== END ==
LOC: SJCVC 10:35
PROVIDERS: ATTEND Internal Medicine Cardiovascular Disease
DX: R94.31 Abnormal electrocardiogram [ECG] [EKG] (principal); I48.0 Paroxysmal atrial fibrillation; E78.00 Pure hypercholesterolemia, unspecified; I87.2 Venous insufficiency (chronic) (peripheral); I08.1 Rheumatic disorders of both mitral and tricuspid valves; G47.33 Obstructive sleep apnea (adult) (pediatric); Z79.01 Long term (current) use of anticoagulants; Z99.89 Dependence on other enabling machines and devices; Z86.79 Personal history of other diseases of the circulatory system; I10 Essential (primary) hypertension; N40.0 Benign prostatic hyperplasia without lower urinary tract symptoms; J30.9 Allergic rhinitis, unspecified; E11.9 Type 2 diabetes mellitus without complications; Z98.890 Other specified postprocedural states; Z87.891 Personal history of nicotine dependence; Z79.84 Long term (current) use of oral hypoglycemic drugs; Z79.899 Other long term (current) drug therapy